=== PATIENT | male | born 1960 | race Caucasian/White ===

== ENCOUNTER → 2024-06-03 12:48 | Outpatient (CLI) | payer OTHER, SELFPAY ==
--- NOTE | 2024-06-03 12:50 | DI.CT.S_ITS ---
PROCEDURE: CT CHEST WO CON INDICATIONS: right apical nodule follow up TECHNIQUE: Noncontrast 5 mm thick sections acquired from the pulmonary apices to the posterior costophrenic angles. 1 mm lung window, 5 mm thick coronal and sagittal and 7 mm axial MIP reformats were then acquired. For radiation dose reduction, the following was used: automated exposure control, adjustment of mA and/or kV according to patient size. COMPARISON: [facility], CT, CT LOW DOSE LUNG CA SCREENING, 09/22/2023, 8:50. FINDINGS: Image quality: Diagnostic. Lower Neck: No enlarged lymph nodes. Thyroid: Enlargement of the right thyroid gland. Left thyroid lobectomy. Axillae: No enlarged lymph nodes. Chest Wall: Unremarkable. Bones: Unremarkable. Lungs and Pleura: Stable part solid nodule measuring 0.8 x 0.9 cm at the right lung apex. There are surrounding spiculations, though morphology is stable compared to priors. There is a background of mild centrilobular emphysema. Resolved right lower lobe bronchitis and atelectatic change. No acute ground-glass opacities, consolidations, or pleural effusions. Heart: Heart size is normal. No pericardial effusion. Mild pericardial thickening. Moderate coronary artery calcification. Thoracic Vessels: The aorta and pulmonary arteries demonstrate normal size. Mediastinum and Leslie: No enlarged lymph nodes. Esophagus: No wall thickening. No hiatal hernia. Upper Abdomen: Visualized upper abdomen solid organs and bowel loops appear normal. IMPRESSION: Stable 0.9 cm part solid right apical lung nodule. LUNG-RADS two. Continue annual low-dose chest CT screening with follow-up in one year. Dictated by: Kristen Jarrell M.D. on 06/05/2024 at 11:19 Approved by: Kristen Jarrell M.D. on 06/05/2024 at 11:28
== END ==
LOC: CT 12:50
PROVIDERS: PCP Family Medicine; Referring Provider Internal Medicine Critical Care Medicine; Visit Provider Internal Medicine Critical Care Medicine
DX: R91.1 Solitary pulmonary nodule (principal); Z91.89 Other specified personal risk factors, not elsewhere classified
CPT/HCPCS: 71250